=== PATIENT | female | born 2000 | race Caucasian/White ===

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

== ENCOUNTER 2021-05-15 08:52 | Day surgery (SDC) | payer OTHER ==
[~2021-05-15 08:52] MED LIST changes: +MELOXICAM15 MG PO; +ULTRAM50 MG PO
== END 2021-05-15 16:15 | disposition home or self-care (01) ==
LOC: CIR.AMB 08:52
PROVIDERS: ATTEND Orthopaedic Surgery
DX: S82.61XA Displaced fracture of lateral malleolus of right fibula, initial encounter for closed fracture (principal); Z20.822 Contact with and (suspected) exposure to COVID-19
CPT/HCPCS: 27792; C1776

== ENCOUNTER 2021-06-25 08:00 | Outpatient (CLI) | payer OTHER | END 2021-06-25 08:04 | disposition home or self-care (01) | LOC: RAD 08:00 | DX: S82.61XS Displaced fracture of lateral malleolus of right fibula, sequela (principal) ==

== ENCOUNTER 2021-09-14 12:36 | Emergency (ER) | payer OTHER ==
[~2021-09-14] VITALS: Ht 162.6 cm; Wt 74.8 kg
== END 2021-09-14 16:15 | disposition home or self-care (01) ==
LOC: ER 12:36 → EMR PED 12:36
DX: N20.1 Calculus of ureter (principal); Z87.442 Personal history of urinary calculi; E86.0 Dehydration; N39.0 Urinary tract infection, site not specified; R31.9 Hematuria, unspecified; Z20.822 Contact with and (suspected) exposure to COVID-19

== ENCOUNTER 2021-09-15 11:05 | Emergency (ER) | payer OTHER ==
[~2021-09-15] VITALS: Ht 162.6 cm; Wt 74.8 kg
== END 2021-09-15 16:11 | disposition home or self-care (01) ==
LOC: ER 11:05 → EMR PED 11:07
DX: N23 Unspecified renal colic (principal); N20.0 Calculus of kidney; N20.1 Calculus of ureter; K76.0 Fatty (change of) liver, not elsewhere classified

== ENCOUNTER 2021-09-21 10:43 | Outpatient (CLI) | payer OTHER | END 2021-09-21 10:50 | disposition home or self-care (01) | LOC: RAD 10:43 | PROVIDERS: ATTEND Internal Medicine | DX: S82.61 Displaced fracture of lateral malleolus of right fibula (principal) ==

== ENCOUNTER 2022-09-24 23:00 | Emergency (ER) | payer OTHER ==
[~2022-09-24] VITALS: Ht 160 cm; Wt 74.8 kg
[~2022-09-24 23:00] MED LIST changes: +OSEL75CA PO; +TYLENOL
[2022-09-25] MEDS ORDERED: TAMS0.4C PO (06:11)
[2022-09-25] MEDS ORDERED: KETO10TA2 PO (06:11)
== END 2022-09-25 06:21 ==
LOC: ER 23:00
DX: R10.32 Left lower quadrant pain (principal); N20.2 Calculus of kidney with calculus of ureter; R16.0 Hepatomegaly, not elsewhere classified

== ENCOUNTER 2024-04-01 19:13 | Emergency (ER) | payer OTHER ==
[~2024-04-01] VITALS: Ht 162.6 cm; Wt 81.6 kg
[~2024-04-01 19:13] MED LIST changes: +TAMS0.4C PO
[2024-04-01] MEDS ORDERED: KETOROLAC TROMETHAMINE 60 MG VIAL IM ONE (20:30)
[2024-04-01] MEDS ORDERED: ORPHENADRINE CITRATE 30 MG/ML AMPUL IM ONE (20:30)
[2024-04-01] MEDS ORDERED: KETO10TA2 PO (22:27)
== END 2024-04-01 22:36 | disposition home or self-care (01) ==
LOC: ER 19:15
DX: S00.93XA Contusion of unspecified part of head, initial encounter (principal); S30.0XXA Contusion of lower back and pelvis, initial encounter; V49.69XA Unspecified car occupant injured in collision with other motor vehicles in traffic accident, initial encounter; Y93.89 Activity, other specified; Y92.413 State road as the place of occurrence of the external cause; Y99.9 Unspecified external cause status

== ENCOUNTER 2025-03-10 06:40 | Emergency (ER) | payer OTHER ==
[~2025-03-10] VITALS: Ht 162.6 cm; Wt 74.8 kg
[2025-03-10] MEDS ORDERED: KETOROLAC TROMETHAMINE 30 MG VIAL IV ONE (07:45)
[2025-03-10] MEDS ORDERED: FAMOtidine 10 MG/ML (4ML VIAL) IV ONE (07:45)
[2025-03-10] MEDS ORDERED: ONDANSETRON HCL 2 MG/ML VIAL IV ONE (07:45)
[2025-03-10] MEDS ORDERED: 0.9 % SODIUM CHLORIDE 1,000 ML IV ONE (07:45)
[2025-03-10] MEDS ORDERED: CEFTRIAXONE SODIUM 1,000 MG VIAL IV ONE (07:45)
[2025-03-10] MEDS ORDERED: TAMSULOSIN HCL 0.4 MG CAP PO ONE (07:45)
[2025-03-10 08:23] LABS: BASO % 0.2 % (0.1-1.2); EOS # 0.01 (0.04-0.54); EOS % 0.1 % (0.7-7.0); LYMPH # 0.67 (1.18-3.74); LYMPH % 5.6 % (19.3-53.1); MEAN PLATELET VOLUME 11.30 fl (9.4-12.4); MONO # 0.95 (0.24-0.82); MONO % 7.9 % (4.7-12.5); NEUT # 10.29 (1.56-6.13); NEUT % 85.9 % (34.0-71.1); RED CELL DISTRIBUTION WIDTH 13.1 % (11.6-14.4)
[2025-03-10 08:43] LABS: INR 1.02
[2025-03-10 08:48] LABS: ALT/SGPT 68.0 U/L (12-78); AST/SGOT 42.0 U/L (15-37); BILIRUBIN TOTAL 0.95 mg/dL (0.3-1.2); BUN CREA RATIO 10.0 (7.0-25.0); CREATININE SERUM 1.09 mg/dL (0.55-1.02); GFR 62.2; GLOBULINA 4.3 G/DL (2.4-3.5); GLUCOSE FASTING 141.0 mg/dL (65-100); OSMOLALITY SERUM 279.0 MOSM/KG (275-295)
[2025-03-10 09:46] LABS: URINE APPEARANCE Cloudy; URINE BILIRRUBIN Negative (NEGATIVE); URINE BLOOD Large; URINE COLOR Orange; URINE GLUCOSE Negative (NEGATIVE); URINE KETONE Trace (NEGATIVE); URINE LEUKOCYTE Moderate; URINE NITRATE Positive; URINE UROBILINOGEN 1.0 E.U./dl
[2025-03-10 09:51] LABS: URINE EPITHELIAL CELLS 50.7 uL (0.0-38.8); URINE WBC 1333.9 uL (0.0-23.2)
[2025-03-10 10:04] LABS: URINE BACTERIA > 9821.5 uL (0.0-1933); URINE CAST 0.00 uL (0.0-1.40); URINE PROTEIN 100 (NEGATIVE)
[2025-03-10] MEDS ORDERED: PROMETHAZINE HCL 50 MG/ML AMPUL IM ONE ×2 (10:30→11:03)
[2025-03-10] MEDS ORDERED: BACTRIM DS TAB1 EACH PO (10:46)
[2025-03-10] MEDS ORDERED: TAMS0.4C PO (10:46)
[2025-03-10] MEDS ORDERED: NORFLEX100MG PO (10:46)
[2025-03-10] MEDS ORDERED: PEPCID AC20 MG PO (10:46)
[2025-03-10] MEDS ORDERED: ZOFRAN8 MG PO (10:46)
[2025-03-10] MEDS ORDERED: MORPHINE SULFATE 4 MG/ML CARTRIDGE IV SCH (12:00)
[2025-03-11] MEDS ORDERED: BUTALBIT-ACETA1 EACH PO (22:49)
== END 2025-03-10 12:12 | disposition home or self-care (01) ==
LOC: ER 06:41
PROVIDERS: General Practice
DX: R10.A2 Flank pain, left side (principal); N20.2 Calculus of kidney with calculus of ureter; K76.0 Fatty (change of) liver, not elsewhere classified

== ENCOUNTER 2025-03-11 19:00 | Emergency (ER) | payer OTHER ==
[~2025-03-11] VITALS: Ht 160 cm; Wt 74.8 kg
[~2025-03-11 19:00] MED LIST changes: +BACTRIM DS TAB1 EACH PO; +NORFLEX100MG PO; +PEPCID AC20 MG PO; +ZOFRAN8 MG PO
[2025-03-11] MEDS ORDERED: ONDANSETRON HCL 4 MG in 0.9 % SODIUM CHLORIDE 50 ML IV PRN (19:30)
[2025-03-11] MEDS ORDERED: MORPHINE SULFATE 4 MG/ML CARTRIDGE IV PRN (19:30)
[2025-03-11] MEDS ORDERED: CEFTRIAXONE SODIUM 1,000 MG VIAL IV ONE (19:30)
[2025-03-11] MEDS ORDERED: FAMOtidine 10 MG/ML (4ML VIAL) IV ONE (19:30)
[2025-03-11] MEDS ORDERED: TAMSULOSIN HCL 0.4 MG CAP PO ONE ×2 (19:30→20:48)
[2025-03-11] MEDS ORDERED: 0.9 % SODIUM CHLORIDE 1,000 ML IV ONE (19:45)
[2025-03-11] MEDS ORDERED: CEFTRIAXONE SODIUM 1,000 MG VIAL ONE (20:48)
[2025-03-11] MEDS ORDERED: ONDANSETRON HCL 2 MG/ML VIAL ONE (20:48)
[2025-03-11] MEDS ORDERED: FAMOTIDINE/PF 20 MG/2 ML VIAL ONE (20:48)
[2025-03-11 20:54] LABS: BASO % 0.1 % (0.1-1.2); EOS # 0.01 (0.04-0.54); EOS % 0.1 % (0.7-7.0); LYMPH # 0.88 (1.18-3.74); LYMPH % 11.7 % (19.3-53.1); MEAN PLATELET VOLUME 11.10 fl (9.4-12.4); MONO # 0.83 (0.24-0.82); MONO % 11.1 % (4.7-12.5); NEUT # 5.76 (1.56-6.13); NEUT % 76.7 % (34.0-71.1); RED CELL DISTRIBUTION WIDTH 13.6 % (11.6-14.4)
[2025-03-11 21:13] LABS: URINE APPEARANCE Cloudy; URINE BILIRRUBIN Negative (NEGATIVE); URINE BLOOD Small; URINE COLOR Dark Yellow; URINE GLUCOSE Negative (NEGATIVE); URINE KETONE Trace (NEGATIVE); URINE LEUKOCYTE Small; URINE NITRATE Negative; URINE PROTEIN 30 (NEGATIVE); URINE UROBILINOGEN 0.2 E.U./dl
[2025-03-11 21:16] LABS: URINE BACTERIA 4589.7 uL (0.0-1933); URINE EPITHELIAL CELLS 108.7 uL (0.0-38.8); URINE RBC 39.3 uL (0.0-20.8); URINE WBC 79.9 uL (0.0-23.2)
[2025-03-11 21:32] LABS: INR 1.13
[2025-03-11 21:41] LABS: COVID-19 AG NEGATIVE (NEGATIVE)
[2025-03-11 21:43] LABS: ALT/SGPT 50 U/L (12-78); AST/SGOT 39 U/L (15-37); BILIRUBIN TOTAL 0.95 mg/dL (0.3-1.2); BUN CREA RATIO 8 (7.0-25.0); CREATININE SERUM 2.07 mg/dL (0.55-1.02); GFR 29.67; GLOBULINA 3.9 G/DL (2.4-3.5); GLUCOSE FASTING 98 mg/dL (65-100); OSMOLALITY SERUM 279 MOSM/KG (275-295)
[2025-03-11 21:46] LABS: HCG QUANTITATIVE < 1 mUI/mL (1-3)
[2025-03-11 21:55] LABS: URINE CAST 0.00 uL (0.0-1.40)
[2025-03-11] MEDS ORDERED: BUTALBIT-ACETA1 EACH PO (22:49)
== END 2025-03-11 23:40 | disposition home or self-care (01) ==
LOC: ER 19:00
PROVIDERS: General Practice
DX: R51.9 Headache, unspecified (principal); R10.9 Unspecified abdominal pain; Z20.822 Contact with and (suspected) exposure to COVID-19

== ENCOUNTER 2025-03-13 04:03 | Inpatient (IN) | payer OTHER ==
[~2025-03-13] VITALS: Ht 160 cm; Wt 74.4 kg
[~2025-03-13 04:03] MED LIST changes: +BUTALBIT-ACETA1 EACH PO
--- NOTE | 2025-03-13 04:20 | NUR ---
PACIENTE ALERA Y ORIENTADA X3 QUIEN REFIERE VENIR POR DOLOR EN FLANCO JOSE POR CAUSA DE CALCULO RENAL. PACIENTE SE PERCUTA AREA Y REFIERE LA MOLESTIA.
[2025-03-13] MEDS ORDERED: TAMSULOSIN HCL 0.4 MG CAP PO STA (06:05)
[2025-03-13] MEDS ORDERED: CEFAZOLIN SODIUM 1,000 MG VIAL IM STA (06:07)
[2025-03-13] MEDS ORDERED: MORPHINE SULFATE 2 MG/ML SYRINGE IV STA (06:07)
[2025-03-13] MEDS ORDERED: SODIUM CL 0.9% 25 ML IV.SOLN. IV STA (06:08)
[2025-03-13] MEDS ORDERED: DIPHENHYDRAMINE HCL 50 MG/ML VIAL 1ML IM STA (06:09)
[2025-03-13] MEDS ORDERED: TAMSULOSIN HCL 0.4 MG CAP PO ONE ×2 (06:29→13:06)
[2025-03-13] MEDS ORDERED: DIPHENHYDRAMINE HCL 50 MG/ML VIAL 1ML ONE (06:29)
[2025-03-13] MEDS ORDERED: CEFAZOLIN SODIUM 1,000 MG VIAL ONE (06:30)
--- NOTE | 2025-03-13 06:49 | NUR ---
PTE EVALUADO POR LA DRA. HARTMAN, PRESENTANDO DOLOR ESPALDA BAJA CONHX DE CALCULOS RENALES. SE EMMA MUESTRAS DE CAR BAJO MEDIDAS ASEPTICAS, MEDICAMENTOS ADMINISTRADOS VICKY ORDEN MEDICA Y SE ORIENTA SOBRE PROCEDIMIENTOS REALIZADOS Y PROCESO DE RE-EVALUACION MEDICA.
[2025-03-13 06:59] LABS: BASO % 0.3 % (0.1-1.2); EOS # 0.03 (0.04-0.54); EOS % 0.4 % (0.7-7.0); LYMPH # 0.81 (1.18-3.74); LYMPH % 11.4 % (19.3-53.1); MEAN PLATELET VOLUME 11.20 fl (9.4-12.4); MONO # 0.88 (0.24-0.82); NEUT # 5.35 (1.56-6.13); NEUT % 75.1 % (34.0-71.1); RED CELL DISTRIBUTION WIDTH 13.7 % (11.6-14.4)
[2025-03-13 07:02] LABS: MONO % 12.4 % (4.7-12.5)
[2025-03-13 07:33] LABS: BUN CREA RATIO 6.0 (7.0-25.0); CREATININE SERUM 1.73 mg/dL (0.55-1.02); GFR 36.5; GLUCOSE FASTING 126.0 mg/dL (65-100); OSMOLALITY SERUM 278.0 MOSM/KG (275-295)
[2025-03-13 08:38] LABS: BASO % 0.1 % (0.1-1.2); EOS # 0.03 (0.04-0.54); EOS % 0.4 % (0.7-7.0); LYMPH # 0.88 (1.18-3.74); LYMPH % 12.4 % (19.3-53.1); MEAN PLATELET VOLUME 11.40 fl (9.4-12.4); MONO # 1.10 (0.24-0.82); NEUT # 5.05 (1.56-6.13); NEUT % 71.2 % (34.0-71.1); RED CELL DISTRIBUTION WIDTH 13.6 % (11.6-14.4)
[2025-03-13 08:52] LABS: MONO % 15.5 % (4.7-12.5)
[2025-03-13 09:49] LABS: URINE APPEARANCE Clear; URINE BACTERIA 572.3 uL (0.0-1933); URINE BILIRRUBIN Negative (NEGATIVE); URINE BLOOD Negative; URINE COLOR Yellow; URINE EPITHELIAL CELLS 19.5 uL (0.0-38.8); URINE GLUCOSE Negative (NEGATIVE); URINE KETONE Negative (NEGATIVE); URINE LEUKOCYTE Trace; URINE NITRATE Negative; URINE PROTEIN Trace (NEGATIVE); URINE RBC 13.9 uL (0.0-20.8); URINE UROBILINOGEN 1.0 E.U./dl; URINE WBC 16.3 uL (0.0-23.2)
[2025-03-13 10:35] LABS: URINE CAST 0.00 uL (0.0-1.40)
[2025-03-13] MEDS ORDERED: MORPHINE SULFATE 4 MG/ML CARTRIDGE IV ONE (11:00)
[2025-03-13] MEDS ORDERED: FAMOTIDINE/PF 20 MG in 0.9 % SODIUM CHLORIDE 8 ML IV PUSH SCH (12:41)
[2025-03-13] MEDS ORDERED: TAMSULOSIN HCL 0.4 MG CAP PO SCH (12:43)
[2025-03-13] MEDS ORDERED: CEFTRIAXONE SODIUM 2,000 MG in 0.9 % SODIUM CHLORIDE 100 ML IV SCH (12:43)
[2025-03-13] MEDS ORDERED: ACETAMINOPHEN 325 MG TABLET PO PRN (12:45)
[2025-03-13] MEDS ORDERED: ONDANSETRON HCL 4 MG in 0.9 % SODIUM CHLORIDE 50 ML IV PRN (12:45)
[2025-03-13] MEDS ORDERED: 0.9 % SODIUM CHLORIDE 1,000 ML IV SCH (12:45)
[2025-03-13] MEDS ORDERED: MORPHINE SULFATE 2 MG/ML SYRINGE IV PRN (12:45)
[2025-03-13] MEDS ORDERED: CEFTRIAXONE SODIUM 2,000 MG VIAL ONE (13:06)
[2025-03-13] MEDS ORDERED: FAMOTIDINE/PF 20 MG/2 ML VIAL ONE (13:06)
[2025-03-13 13:25] VITALS: BP 110/70
[2025-03-13] MEDS ORDERED: ACETAMINOPHEN 325 MG TABLET PO ONE (14:50)
[2025-03-13] MEDS ORDERED: ACETAMINOPHEN 500 MG GEL..CAP PO STA (15:01)
[2025-03-13 18:07] VITALS: BP 153/87
[2025-03-14 05:21] VITALS: BP 116/70; O2SAT 98
[2025-03-14 07:04] LABS: ALT/SGPT 71.0 U/L (12-78); AST/SGOT 60.0 U/L (15-37); BILIRUBIN TOTAL 0.93 mg/dL (0.3-1.2); BUN CREA RATIO 7.0 (7.0-25.0); CREATININE SERUM 1.52 mg/dL (0.55-1.02); GFR 42.38; GLOBULINA 3.7 G/DL (2.4-3.5); GLUCOSE FASTING 111.0 mg/dL (65-100); OSMOLALITY SERUM 279.0 MOSM/KG (275-295)
[2025-03-14 09:15] VITALS: BP 117/78; O2SAT 90
[2025-03-14 17:47] VITALS: BP 129/82
[2025-03-15 02:45] VITALS: BP 113/71; O2SAT 82
[2025-03-15 09:01] VITALS: BP 117/75
[2025-03-15 17:47] VITALS: BP 133/89
[2025-03-15] MEDS ORDERED: MORPHINE SULFATE 2 MG/ML SYRINGE IV PRN (18:30)
[2025-03-16 01:48] VITALS: BP 123/82; O2SAT 90
[2025-03-16 08:49] VITALS: BP 126/85; O2SAT 97
[2025-03-16 20:53] VITALS: BP 141/85; O2SAT 98
[2025-03-17 01:50] VITALS: BP 108/71; O2SAT 98
[2025-03-17 06:28] LABS: BASO % 0.4 % (0.1-1.2); EOS # 0.21 (0.04-0.54); EOS % 2.5 % (0.7-7.0); LYMPH # 1.24 (1.18-3.74); LYMPH % 14.6 % (19.3-53.1); MEAN PLATELET VOLUME 10.50 fl (9.4-12.4); MONO # 0.86 (0.24-0.82); MONO % 10.1 % (4.7-12.5); NEUT # 6.04 (1.56-6.13); NEUT % 70.9 % (34.0-71.1); RED CELL DISTRIBUTION WIDTH 13.6 % (11.6-14.4)
[2025-03-17 07:04] LABS: ALT/SGPT 70.0 U/L (12-78); AST/SGOT 50.0 U/L (15-37); BILIRUBIN TOTAL 0.78 mg/dL (0.3-1.2); BUN CREA RATIO 9.0 (7.0-25.0); CREATININE SERUM 1.39 mg/dL (0.55-1.02); GFR 46.98; GLOBULINA 4.7 G/DL (2.4-3.5); GLUCOSE FASTING 96.0 mg/dL (65-100); OSMOLALITY SERUM 281.0 MOSM/KG (275-295)
[2025-03-17 07:17] LABS: INR 1.02
[2025-03-17 09:27] VITALS: BP 133/83; O2SAT 94
[2025-03-17] MEDS ORDERED: CHLORHEXIDINE GLUCONATE 120 ML BOTTLE TOP ONE (12:00)
[2025-03-17] MEDS ORDERED: LIDOCAINE HCL 1%/EPINEPHRINE 20ML VIAL IJ ONE (12:00)
[2025-03-17] MEDS ORDERED: BUPIVACAINE HCL/Mpf 0.5% 10ML VIAL ONE (12:00)
[2025-03-17] MEDS ORDERED: IOVERSOL 320 MG/ML - 50 ML VIAL IV ONE (12:36)
[2025-03-17] MEDS ORDERED: PHENAZOPYRIDINE HCL 100 MG TABLET PO STA (13:47)
[2025-03-17] MEDS ORDERED: KETOROLAC TROMETHAMINE 30 MG VIAL IV NR (14:00)
[2025-03-17 18:31] VITALS: BP 133/85; O2SAT 100
== END 2025-03-17 16:53 | disposition home or self-care (01) | DRG 661 ==
LOC: ER 04:03 → SEC-K 12:38 → MEDJ 12:38
PROVIDERS: General Practice; ADMIT Urology; ATTEND Urology
PROC: 0T778DZ Dilation of Left Ureter with Intraluminal Device, Via Natural or Artificial Opening Endoscopic (ICD-10-PCS; 2025-03-17)
PROC: 0TF78ZZ Fragmentation in Left Ureter, Via Natural or Artificial Opening Endoscopic (ICD-10-PCS; principal; 2025-03-17 13:00)
DX: N13.2 Hydronephrosis with renal and ureteral calculous obstruction (principal); N23 Unspecified renal colic; R11.2 Nausea with vomiting, unspecified; R51.9 Headache, unspecified

== ENCOUNTER 2025-03-31 14:27 | Outpatient (CLI) | payer OTHER | END 2025-03-31 14:28 | disposition home or self-care (01) | LOC: RAD 14:27 | DX: N20.0 Calculus of kidney (principal) ==